=== PATIENT | male | born 1965 | race Caucasian/White ===

== ENCOUNTER 2018-06-02 14:06 | Emergency (ER) | payer BC ==
[2018-06-02] MEDS ORDERED: Ketorolac 60 MG/2 ML SDV IM ONE (14:32)
[2018-06-02] MEDS ORDERED: Diphtheria,Pertussis(Acell),Tetanus Vaccine 0.5 ML SDV IM ONE (14:56)
--- NOTE | 2018-06-02 14:57 | EDM.PDOC ---
ED HPI GENERAL MEDICAL PROBLEM - General Chief Complaint: Laceration Stated Complaint: LACERATION ON RIGHT HAND Time Seen by Provider: 06/02/18 14:10 Source of Information: Reports: Patient History Limitations: Reports: No Limitations - History of Present Illness INITIAL COMMENTS - FREE TEXT/NARRATIVE: c/o R hand injury works at home, grinding wheel hit dorsum of R hand, unable to extend thumb pain minimal, did request Toradol on arrival left handed L hand Pain Score (Numeric/FACES): 3 - Related Data Allergies Allergy/AdvReac Type Severity Reaction Status Date / Time No Known Allergies Allergy Verified 06/02/18 14:10 Home Meds: Home Meds Gabapentin [Neurontin] 600 mg BEDTIME 06/02/18 [History] Levothyroxine [Sythroid] 100 mcg PO DAILY 06/02/18 [History] ED ROS GENERAL - Review of Systems Review Of Systems: See Below Constitutional: Reports: No Symptoms HEENT: Reports: No Symptoms Respiratory: Reports: No Symptoms Cardiovascular: Reports: No Symptoms Endocrine: Reports: No Symptoms GI/Abdominal: Reports: No Symptoms : Reports: No Symptoms Musculoskeletal: Reports: Hand Pain Skin: Reports: No Symptoms Neurological: Reports: No Symptoms Psychiatric: Reports: No Symptoms Hematologic/Lymphatic: Reports: No Symptoms Immunologic: Reports: No Symptoms ED EXAM, SKIN/RASH Exam: See Below Exam Limited By: No Limitations General Appearance: Alert, WD/WN, Mild Distress Respiratory/Chest: No Respiratory Distress Cardiovascular: Regular Rate, Rhythm Extremities: Other (R hand with 6.5 cm lac across dorsum proximal to 1st and 2nd MCP, deep down to bone, can flex and extend fingers, however, he cannot extend his thumb, some loss sensation distally, skin pink and warm, gap of 5 mm with missing skin and muscle tissue) Course - Vital Signs Last Recorded V/S: Last Vital Signs Temp 35.9 C 06/02/18 14:06 Pulse 87 06/02/18 14:06 Resp 18 06/02/18 14:06 BP 137/86 06/02/18 14:06 Pulse Ox 96 06/02/18 14:06 - Orders/Labs/Meds Orders: Active Orders 24 hr Category Date Time Status Hand Comp Min 3V Rt [CR] Stat Exams 06/02/18 14:32 Taken Meds: Medications Discontinued Medications Generic Name Dose Route Start Last Admin Trade Name Freq PRN Reason Stop Dose Admin Ketorolac Tromethamine 60 mg 06/02/18 14:32 Toradol IM 06/02/18 14:33 ONETIME ONE - Re-Assessments/Exams Free Text/Narrative Re-Assessment/Exam: 06/02/18 15:28 xr with multiple metal fragments deep in tissue d/w Dr Cummings, [facility], who was in the OR and requested pt go to ED where he would see the pt pt d/w Dr Castelan, [facility] physician, who accepted pt in transfer last Td 8y ago, booster given given Toradol 60 mg IM on arrival, ceftriaxone 1 gm IM given Departure - Departure Time of Disposition: 15:33 Disposition: Home, Self-Care 01 Condition: Good Clinical Impression: Laceration of right hand with foreign body, Injury of extensor tendon of right hand - Discharge Information *PRESCRIPTION DRUG MONITORING PROGRAM REVIEWED*: No *COPY OF PRESCRIPTION DRUG MONITORING REPORT IN PATIENT VIPUL: No Referrals: David Gutierres MD [Primary Care Provider] - Additional Instructions: Go directly to [facility] in [place] to Georgina Castelan and Zoila. son-in-law shows images, images pushed to [facility] - My Orders Last 24 Hours: My Active Orders 06/02/18 14:32 Hand Comp Min 3V Rt [CR] Stat - Assessment/Plan Last 24 Hours: My Active Orders 06/02/18 14:32 Hand Comp Min 3V Rt [CR] Stat
[2018-06-02] MEDS ORDERED: cefTRIAXone 1 GM Vial IM ONE (15:30)
--- NOTE | 2018-06-03 09:22 | CR ---
INDICATION: Hit hand with spice grinder. RIGHT HAND: Three views of the right hand were obtained 06/02/18 with evidence of a soft tissue laceration at the level of the distal shaft of the first metacarpal. Metallic appearing amorphous density is noted in that area, suggesting debris in a laceration wound. A fracture or dislocation or other significant bone or joint abnormality was not identified. MTDD
== END 2018-06-02 15:30 ==
LOC: FB.ED 14:06
DX: S61.411A Laceration without foreign body of right hand, initial encounter (principal); Z23 Encounter for immunization; Z79.899 Other long term (current) drug therapy; W22.8XXA Striking against or struck by other objects, initial encounter
CPT/HCPCS: 73130; 90471; 90715; 96372; 99284; J1885; 90472